=== PATIENT | male | born 1970 | race Asian ===

== ENCOUNTER 2025-03-06 07:45 | Day surgery (SDC) | payer OTHER ==
[~2025-03-06] VITALS: Ht 175.3 cm; Wt 83.9 kg
[2025-03-06] VITALS (12 sets, daily range): BP systolic 100–147; BP diastolic 80–91; PULSE 48–70; RESP 9–17; TEMP 97–97.7; O2SAT 97–100
[2025-03-06] MEDS ORDERED: LIDOCAINE HCL 2% LOCAL 20 ML VIAL ONE (08:11)
[2025-03-06] MEDS ORDERED: HEPARIN SOD (PORCINE) 1000 UNIT/ML 30ML ONE (08:11)
[2025-03-06] MEDS ORDERED: VERAPAMIL HCL 2.5 MG/ML 2 ML VIAL ONE (08:11)
[2025-03-06] MEDS ORDERED: SODIUM CHLORIDE 0.9% 1000ML 1,000 ML ONE (08:12)
[2025-03-06] MEDS ORDERED: NITROGLYCERIN/D5W 200 MCG/ML 250 ML ONE (08:12)
[2025-03-06] MEDS ORDERED: HEPARIN SOD/SOD CHLORIDE 2,000 ML ONE (08:12)
[2025-03-06] MEDS ORDERED: IOPAMIDOL 370 MG/ML 100 ML INFUS..BTL INJ ONE (08:12)
[2025-03-06] MEDS ORDERED: MIDAZOLAM HCL 2 MG/2 ML VIAL ONE ×2 (08:22→08:49)
[2025-03-06] MEDS ORDERED: FENTANYL CITRATE/PF 100MCG/2 ML INJ ONE (08:23)
[2025-03-06] MEDS ORDERED: AMLODIPINE BESYL5 MG PO (11:32)
== END 2025-03-06 11:40 | disposition home or self-care (01) ==
LOC: CATH LAB 07:45
PROVIDERS: ATTEND Internal Medicine Cardiovascular Disease
DX: I25.119 Atherosclerotic heart disease of native coronary artery with unspecified angina pectoris (principal); I10 Essential (primary) hypertension; Z79.899 Other long term (current) drug therapy
CPT/HCPCS: 76937; 93458; C1887; J1644; J2003; J2250; J3010; J7030; Q9967; 99152